=== PATIENT | female | born 1965 | race Two or more races ===

== ENCOUNTER 2021-02-01 05:25 | Day surgery (SDC) | payer OTHER ==
[~2021-02-01] VITALS: Ht 175.3 cm; Wt 56.2 kg
[~2021-02-01 05:25] MED LIST: CLARITIN10 M2 PO; MIRALAX17 GM PO
== END 2021-02-01 17:15 | disposition home or self-care (01) ==
LOC: CIR.AMB 05:25 → SURH 11:45 → CIR.AMB 11:45 → EDSTATUS 11:45 → CIR.AMB 17:15
PROVIDERS: ATTEND Colon & Rectal Surgery
DX: K35.890 Other acute appendicitis without perforation or gangrene (principal); Z20.822 Contact with and (suspected) exposure to COVID-19